=== PATIENT | female | born 1950 | race Caucasian/White ===

== ENCOUNTER → 2016-10-30 | Outpatient (CLI) | payer MEDICARE, OTHER ==
[~2016-10-30] MED LIST: DESV50TA PO; DICLOFENAC; LOXA10CA PO; METH10TA82 PO; SIMV40TA82 PO; TRIA50CA PO
== END ==
LOC: IMA 10:40
PROVIDERS: ATTEND Family Medicine
DX: N95.8 Other specified menopausal and perimenopausal disorders (principal); Z82.62 Family history of osteoporosis